=== PATIENT | female | born 1985 | race Caucasian/White ===

== ENCOUNTER 2022-08-18 10:59 | Outpatient (CLI) | payer OTHER, SELFPAY ==
[2022-08-18 21:48] LABS: Chloride* 105 mmol/L (96-114); Potassium* 4.5 mmol/L (3.6-5.1); Sodium* 142 mmol/L (135-149)
[2022-08-18 21:51] LABS: Blood Urea Nitrogen* 13 mg/dL (5-24); Calcium* 9.8 mg/dL (8.4-10.6); Carbon Dioxide* 26 mmol/L (20-32); Creatinine* 0.9 mg/dL (0.5-1.5); Estimated Glomerular Filt Rate 86 ml/min; Glucose* 102 mg/dL (60-115)
== END 2022-08-18 11:00 | disposition home or self-care (01) ==
PROVIDERS: PCP Obstetrics & Gynecology; Visit Provider Family Medicine
DX: Z01.818 Encounter for other preprocedural examination (principal)
CPT/HCPCS: 80048

== ENCOUNTER 2022-08-24 07:15 | Day surgery (SDC) | payer OTHER, SELFPAY ==
[2022-08-24] VITALS (18 sets, daily range): BP systolic 100–152; BP diastolic 57–98; PULSE 76–105; RESP 16–20; TEMP 36.4–37.4; O2SAT 95–100; BMI 40.0
[2022-08-24 07:54] LABS: Hemoglobin* 14.4 gm/dL (12.0-16.0)
[2022-08-24] MEDS: LACTATED RINGERS 1000 ML 1,000 ML 100 ML IV ×2 (08:30→10:58)
[2022-08-24] MEDS: ETHYL CHLORIDE 1 APPLICATION 1 APPLIC TOPICAL (08:31)
[2022-08-24] MEDS: SODIUM CHLORIDE 0.9 % (FLUSH) 10 ML SYRINGE IVF (08:31)
[2022-08-24 08:43] LABS: HCG Qualitative Serum* Negative (Negative)
[2022-08-24] MEDS: CEFAZOLIN 1 GM inj 3 GM IVP (09:15)
[2022-08-24] MEDS: KETOROLAC 30 MG/ML inj IVP ×3 (10:59→23:13)
--- NOTE | 2022-08-24 11:15 | PM.PROC ---
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 Patient has completed her family. Scheduled total laparoscopic hysterectomy, light salpingo oophorectomy and diagnostic cystoscopy to prevent ovarian cancer metastasis. Postoperative diagnosis: Same Procedure: Total laparoscopic hysterectomy, bilateral salpingectomy, diagnostic cystoscopy. Anesthesia: General endotracheal, local Surgeon: Jennifer Snow MD Pickers Material Handlers: Lakeisha Brito MD 2nd assist: YAKELIN Campoverde Estimated blood loss: 100 mL. IV Fluid: 1500 mL Urine output: 450 mL, clear urine at the end of the procedure Drains: Kirkland to gravity Specimen: Uterus, left ovary and fallopian tube to pathology. Findings: On exam under anesthesia: The uterus was anteverted, approximately 9-10 week size, mobile without nodularity or masses palpable. Adnexa without mass or fullness palpable. On laparoscopy: normal appearing uterus left fallopian tube and ovary. Appendix, right tube and ovary surgically absent. Liiver edge and gallbladder appeared normal. Filmy adhesions of cecum to the right pelvic sidewall and thin adhesions of sigmoid colon to left pelvic sidewall. Procedure: Jennifer was taken to the operating room where general anesthetic was found to be adequate. She was placed in the dorsal lithotomy position and an exam under anesthesia was performed with findings stated above. She was then prepped and draped in a normal sterile manner. A Kirkland catheter was placed. A bivalve speculum was placed in the vaginal canal. A single-toothed tenaculum was placed on the anterior lip of the cervix, in the uterus sounded to 9.5 cm. A extra large VCare uterine manipulator was then placed. The tenaculum and speculum were removed from the cervix. Attention was then turned to performing the laparoscopic portion of the procedure. All incisions were infiltrated with 0.50% Marcaine prior to incising the skin. A vertical, infraumbilical 1 cm incision was made. An 11 mm trocar was then placed under direct visualization. The abdomen was then insufflated with CO2 gas to a pressure of 15 mm of mercury. Two, pelvic ports were then placed approximately 3-4 finger breaths medial to the ischial crests. The trocar in the RLQ = 5mm, LLQ = 11mm. These were placed under direct visualization. Attention was then turned to performing the hysterectomy. Both ureters were visualized in the normal position bilaterally. The left fallopian tube was grasped and infundibulopelvic ligament was cauterized and ligated using the Olympus PowerSeal blunt tip dissecting forceps. Sequential pedicles were then formed using the power seal dissecting forceps and the tube and ovary were removed from the cornua and placed in posterior cul-de-sac. The left side of the hysterectomy was performed using the PowerSeal dissecting forceps. The 1st pedicles were starting with the broad ligament that was cauterized and and bisected. In sequence show pedicles were formed to divide the utero-ovarian ligament. Then sequential pedicles were made through the broad ligament. The posterior leaf of the broad ligament was then divided and sequential pedicles carried down to the level of the VCare cup. The anterior leaf of the broad ligament was then divided down to the level of the anterior aspect of the VCare cup and a bladder flap created. The uterine vessels were then skeletonized. The uterine vessels were then cauterized and divided. Then excess tissue was cleared over the top of the VCare cup using the dissecting forceps. The right side of the hysterectomy were then performed in a similar manner. The Ligasure Valleylab pen with the spatula attachment was then used to perform the colpotomy incising around the VCare cup. The uterus, left tube and ovary were removed from the pelvis via the vaginal canal. The fundus placed in the vaginal canal to maintain insufflation. The vaginal cuff was then reapproximated using 2-0 V lock suture in a running manner. All the pedicles and vaginal cuff were then closely visualized and hemostasis obtained with bipolar cautery using the PowerSeal dissecting forceps or the Valleylab pen with the spatula. The the uterus was removed from the vaginal canal and sent to pathology. The Kirkland catheter was briefly removed. A diagnostic cystoscopy was performed using normal saline as the insufflation medium. The dome of the bladder was noted to be without injury and no evidence of any sutures from the vaginal cuff causing injury. Normal urine flow was noted through both ureteral orifices. Fluorescein IV was used to visualize the urine more easily. The Kirkland catheter was then replaced. Attention was then returned to the abdomen where hemostasis was verified. Arthur was applied to the vaginal cuff. The CO2 pressure decreased to 8mmHG and hemostasis verified. The fascia in the LLQ incision was approximated with 0-Vicryl suture using the Roslaia fascial closure device. This was closed under direct visualization with the laparoscope. The fascia in the umbilical incision was reapproximated using 0 Vicryl on a UR 6 needle. All trocars were removed under direct visualization. CO2 gas was allowed to escape the infraumbilical port prior to its removal. All skin incisions were re-approximated using 4-0 Monocryl in a running subcuticular manner, Exofin skin adhesive gel and adhesive bandages placed. The patient tolerated this procedure well. Sponge, lap and instrument counts were correct x2 at the end of the procedure and the patient was taken to the recovery area in stable condition. The patient received 3gm IV ancef prior to the start of the procedure. Surgeon: Jennifer Snow MD
--- NOTE | 2022-08-24 11:21 | P.GYNPRC_ITS ---
Procedure Note Date Seen: 08/24/22 Procedure Details: PREOPERATIVE DIAGNOSIS: 37-year-old 5 para 2? 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 POSTOPERATIVE DIAGNOSIS: 37-year-old 5 para 2? 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 PROCEDURE: Total laparoscopic hysterectomy, L ysis of adhesions, Left salpingo- oophorectomy and diagnostic cystoscopy. SURGEON: Gwendolyn. BLACK OXIDE COATING EQUIPMENT TENDER: Daryl. ANESTHESIA: General endotracheal COMPLICATIONS: None ESTIMATED BLOOD LOSS: See operative report by Dr. Snow. FINDINGS: See operative report by Dr. Snow. PROCEDURE NOTE: Please see the operative report by Dr. Snow for full details of the procedure. I was asked to assist. I was scrubbed in for the entire procedure until closure of the abdominal incisions. I provided assistance with laparoscopic port placement, lysis of adhesions, visualization and retraction, and with the hysterectomy and LSO from the right side, as well as with hemostasis and closure of the vaginal cuff.
--- NOTE | 2022-08-24 11:36 | W.ANESCHARGE ---
Anesthesia Charges Start Date/Time Anesthesia Start Date: 08/24/22 Anesthesia Start Time: 08:52 Stop Date/Time Anesthesia Stop Date: 08/24/22 Anesthesia Stop Time: 11:33 Summary Emergency: No
[2022-08-24] MEDS: LACTATED RINGERS 1000 ML 1,000 ML 35 ML IV (11:59)
--- NOTE | 2022-08-24 14:26 | P.NB_ITS ---
Nerve Block Nerve Block Time Seen by Provider: 09:03 Date Seen: 08/24/22 Type of block requested by surgeon for post-operative analgesia: TAP Side: bilateral Time out performed: Yes Verification of patient name: Yes Verification of date of : Yes Site marking: site marked Name of person performing procedure: Curt Continuous monitoring Was continuous monitoring of O2 sat, B/P, equipment monitor phototypesetting, recorded every 15 minutes?: Yes Procedure Checklist: sterile prep, needles and gloves Ultrasound guided. Images saved: Yes Medications given in 5ml increments after negative aspiration: Marcaine %: 0.25 mL: 30 Needle gauge: 20 and Exparel mL: 10 Patient tolerated procedure well: Yes Additional comments: Needle noted adjacent to nerve Block Charges Block Charge (with Pro Fee): TAP Bilateral Use of Ultrasound Machine for Block: Yes- US Guidance/pain block
--- NOTE | 2022-08-24 14:27 | W.ANESCHARGE ---
Anesthesia Charges Start Date/Time Anesthesia Start Date: 08/24/22 Anesthesia Start Time: 08:52 Stop Date/Time Anesthesia Stop Date: 08/24/22 Anesthesia Stop Time: 11:33 Summary Emergency: No
[2022-08-24] MEDS: LACTATED RINGERS 1000 ML 1,000 ML 125 ML IV (15:37)
[2022-08-24] MEDS: ONDANSETRON 2 MG/ML inj 4 MG IVP (18:37)
[2022-08-24] MEDS: ENOXAPARIN 40 MG/0.4 ML INJ SUBCUT (21:02)
--- NOTE | 2022-08-24 23:07 | PC.NURSE ---
Pt states that she feels slightly bloated, but not to uncomfortable. Bowel sounds are active and flactus present. Pt has sever edema in her left lower extremity, which she states is normal for her. Pt appears less anxious than at the beginning of the shift and is encouraged to get some sleep.
[2022-08-25] MEDS: ACETAMINOPHEN 500 MG TABLET 1000 MG PO ×2 (02:10→10:21)
[2022-08-25 05:20] VITALS: BP 121/73; PULSE 85; RESP 14; TEMP 36.8; O2SAT 95
[2022-08-25] MEDS: IBUPROFEN 600 MG TABLET PO ×2 (05:40→09:04)
[2022-08-25 07:17] LABS: Basophils Absolute Auto 0.02 K/uL (0.00-0.30); Basophils Percent Auto 0.3 % (0.0-3.0); Eosinophils Absolute Auto 0.02 K/uL (0.00-0.50); Eosinophils Percent Auto 0.3 % (0.0-7.0); Hematocrit 36.7 % (33.0-51.0); Hemoglobin* 12.3 gm/dL (12.0-16.0); Lymphocytes Absolute Auto 2.43 K/uL (0.90-2.90); Lymphocytes Percent Auto 33.6 % (20-44); Mean Corpuscular HGB Conc 34 gm/dL (32-36); Mean Corpuscular Hemoglobin 29 pg (26-34); Mean Corpuscular Volume 86 fL (80-100); Monocytes Percent Auto 9.1 % (0.0-11.0); Neutrophils Absolute Auto 4.11 K/uL (1.7-7.0); Neutrophils Percent Auto 56.7 % (42.0-72.0); Platelet Count* 244 K/uL (140-440); RDW Coefficient of Variation % 12.3 % (11.5-15.5); Red Blood Count 4.27 m/uL (4.00-5.20); White Blood Count* 7.24 K/uL (4.50-11.00)
[2022-08-25 07:21] LABS: Slide Review Reflex No
[2022-08-25] MEDS: CITALOPRAM HYDROBROMIDE 20 MG TABLET PO (09:04)
[2022-08-25] MEDS: DOCUSATE SODIUM 100 MG CAPSULE PO (09:04)
[2022-08-25 09:08] VITALS: BP 128/75; PULSE 82; RESP 16; TEMP 37.4; O2SAT 97
--- NOTE | 2022-08-25 09:32 | PM.GYNDS1 ---
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 Indication for surgery: History of ovarian carcinoma, completed childbearing. Intraoperative findings were notable for no gross abnormalities. She had an uncomplicated surgery. Postoperative course has been uneventful. Vitals have been stable. She has remained afebrile. Today, on postoperative day 1, she reports the pain is well controlled. She has been able to ambulate Without difficulty. She is tolerating regular diet. She is passing flatus. Kirkland catheter has been removed, and she is voiding without difficulty. Postop hemoglobin 12.3. Time Spent with Patient Time attestation: Total time spent providing and/or coordinating discharge services: Time spent: Less than 30 minutes SEALING MACHINE OPERATOR - Exam Physical Exam: Vital signs: Temp Pulse Resp BP Pulse Ox O2 Del Method 99.4 F 82 16 128/75 97 08/25/22 09:08 08/25/22 09:08 08/25/22 09:08 08/25/22 09:08 08/25/22 09:08 08/25/22 09:08 Narrative: VITAL SIGNS: As noted above. GENERAL APPEARANCE: Alert, cooperative female in no acute distress. MOOD & AFFECT: Normal. ABDOMEN: Soft, non-distended only mildly tender to palpation. Incisions look to be healing well, no surrounding erythema, induration or abnormal discharge. : Minimal spotting. EXTREMITIES: Nonedematous. Well perfused. Nontender. SEALING MACHINE OPERATOR - DS: Data Data Completed and Pending Labs on day of discharge: Labs from last 24 hours 08/25/22 06:50 WBC 7.24 RBC 4.27 Hgb 12.3 Hct 36.7 MCV 86 MCH 29 MCHC 34 RDW Coeff of Brain 12.3 Plt Count 244 Neut % (Auto) 56.7 Lymph % (Auto) 33.6 [place] % (Auto) 9.1 Eos % (Auto) 0.3 Baso % (Auto) 0.3 Neut # (Auto) 4.11 Lymph # (Auto) 2.43 [place] # (Auto) 0.70 Eos # (Auto) 0.02 Baso # (Auto) 0.02 Procedures Procedures: Procedures Operation Date: 08/24/22 08:30 Actual Procedure Side Surgeon p Total Lap Hysterectomy, Left Salpingo-Oophorectomy, Dx Cystoscopy Jennifer Snow MD Discharge Plan Discharge Disposition: Home, Self-Care Discharging Surgeon: Lin Soriano Follow-Up Appointment: With Dr. Snow in 2+ and 5 week for postop exam x2. Prescriptions: New docusate sodium 100 mg Capsule 100 mg PO BID PRN (Reason: Constipation) Qty: 100 0RF ibuprofen 600 mg Tablet 600 mg PO Q6H Qty: 30 0RF oxycodone 5 mg Tablet 5 - 10 mg PO Q4H PRN (Reason: Moderate Pain) Qty: 21 0RF Continued citalopram 20 mg tablet 20 mg PO QDAY Qty: 90 3RF Discontinued drospirenone-ethinyl estradiol 3-0.03 mg tablet 1 tab PO QDAY Qty: 84 1RF Activity Level: Activity as Tolerated and No Weight Bearing Discharge Diet: Regular Patient Instructions: Surgical Site Infections (DC) Additional Instructions: Discharge instructions were reviewed with the patient including signs and symptoms of infection and home going medications ACTIVITY RESTRICTIONS: Lifting Restrictions: 20 pounds for 4 weeks No not submerge incisions under water: 2 weeks? Nothing vaginally for 6 weeks: no tampons or intercourse. Do not drive while taking narcotic pain medication(s): 1-2 weeks No high impact, high intensity or core exercises: 4 weeks Off Work or School for 4 weeks Walking and walking up/down stairs: no restriction. Showering: no restriction. Symptoms to report to doctor: Pain not relieved by prescribed medication Fever above 100.4 degrees Fahrenheit A foul vaginal odor Any drainage, redness, or tenderness in your IV or incsion sites. Decrease in urination or painful, frequent urinating Chest pain Shortness of breath Tenderness or pain with redness and/swelling in the calf(s) of your leg FOLLOW-UP APPOINTMENTS: Postop check appointments in 2 and 5weeks with Jennifer Snow MD. Forms: Work/School Release Follow-up: Jennifer Snow MD [Staff Physician] - Lin Soriano MD [Primary Care Provider] - Discharge Orders: Discharge Order (Routine); Ordered 08/25/22 Ordered By: Lin Soriano Consulting provider completed their portion of the discharge: No
== END 2022-08-25 11:00 | disposition home or self-care (01) ==
LOC: OR 07:16 → OB 07:20
PROVIDERS: PCP Obstetrics & Gynecology; Visit Provider Obstetrics & Gynecology
PROC: 0UT94ZZ Resection of Uterus, Percutaneous Endoscopic Approach (ICD-10-PCS; CPT 58571; principal; 2022-08-24 08:30)
DX: C56.1 Malignant neoplasm of right ovary (principal); N83.02 Follicular cyst of left ovary; Z90.721 Acquired absence of ovaries, unilateral; E66.9 Obesity, unspecified; Z68.41 Body mass index [BMI] 40.0-44.9, adult; R68.82 Decreased libido; F41.1 Generalized anxiety disorder
CPT/HCPCS: 58571; 00840; 36415; 64488; 76942; 81025; 84703; 85018; 85025; 86850; 86900; 86901; 88307; A9270; C9290; J0690; J1100; J1170; J1650; J1885; J2250; J2405; J2704; J3010; J3490; J7120

== ENCOUNTER 2022-09-08 09:30 | Emergency (ER) | payer OTHER, SELFPAY ==
[2022-09-08] VITALS (7 sets, daily range): BP systolic 122–137; BP diastolic 74–98; PULSE 77–81; RESP 16; TEMP 36.3; O2SAT 97–99
--- NOTE | 2022-09-08 09:58 | ED_ITS ---
HPI - General Adult General Time Seen by Provider: 09:58 Date Seen: 09/08/22 Chief complaint: Chest Pain Stated complaint: Chest pain Time Seen by Provider: 09/08/22 09:52 Source: patient Mode of arrival: ambulatory Limitations: no limitations History of Present Illness HPI narrative: Jennifer is a 37-year-old female past medical history includes malignant neoplasm of the right ovary status post laparoscopic hysterectomy 2 weeks ago, anxiety, presents emerged department via private car with chest pain. Patient states that since last Tuesday she developed some left upper chest pain, it would radiate to her neck and down her left arm, Tuesday and yesterday she just had pain in the upper chest area it is been constant worse with inspiration, sharp in nature, some radiation to the back. She denies any heavy lifting, shortness of breath, diaphoresis, lightheadedness or dizziness. No history of any PEs or DVTs in the past, no cardiac history, no family history of cardiac disease. She has not had any cough or fevers, no chills. She denies any abdominal pain, vaginal bleeding or urinary complaints. Pain is a 4/10. Related Data Previous Rx's Medication Instructions Recorded citalopram 20 mg tablet 20 mg PO QDAY #90 tabs 05/10/22 ibuprofen 600 mg tablet 600 mg PO Q6H #30 tabs 08/24/22 estradiol 1 mg tablet 1 mg PO QDAY #90 tabs 09/08/22 lorazepam 1 mg tablet 1 mg PO QHS PRN anxiety #30 tabs 09/08/22 Allergies Allergy/AdvReac Type Severity Reaction Status Date / Time No Known Drug Allergies Allergy Unverified 09/08/22 08:26 Review of Systems Status of ROS: Reports: 10 or more systems reviewed and unremarkable except as noted in History and below [facility] Medical History BMI 40.0-44.9, adult Endometriosis determined by laparoscopy (2010) Generalized anxiety disorder History of recurrent miscarriages History of vaginal delivery Malignant neoplasm of right ovary (~2010) Menopausal vasomotor syndrome Oral contraceptive use Right-sided low back pain without sciatica Surgical History History of D&C (04/13/17) History of dilation and curettage (07/27/14) Status post laparoscopic hysterectomy (08/24/22) Status post robot-assisted surgical procedure (2010) Family History Father Skin cancer Mother Skin cancer Father Lymphoma Social History Narrative: Relationship status: Spouse: Andrea Education: School graduate 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 Prior to : 0-1 of servings per week. Illicit or Recreational drug use: No. Concerns for safety at home/work: No. Would like to discuss issues of abuse: No. Dietary restrictions: No Exercise: No Smoking Status: Never smoker Do you use any of these nicotine containing products: None Second hand tobacco smoke exposure: No How often do you have a drink containing alcohol: 4 or more times a week Alcohol type: wine How many standard drinks containing alcohol do you have on a typical day: 1 or 2 How often do you have six or more drinks on one occasion: Never AUDIT-C Alcohol total score: 4 Non-prescribed substance use: denies use Caffeine: Yes Little interest or pleasure in doing things: not at all Feeling down, depressed, or hopeless: not at all service: No Exam Narrative: Exam Narrative: General: No obvious distress sitting comfortably HEENT: Pupils equal round reactive to light Neck: Supple, full range of motion : Lungs: Clear to auscultation bilaterally Heart: Normal sinus rhythm S1-S2 Abdomen: Soft nontender, bowel sounds present Muscle skeletal: Some mild tenderness to palpation the left upper chest wall area Neuro: Alert awake and oriented x3 Const: Vital Signs, click to edit/add: Vital Signs - 24 hr 09/08/22 11:31 09/08/22 12:01 09/08/22 12:20 Pulse Rate 77 Blood Pressure 122/84 122/74 Pulse Oximetry 98 09/08/22 12:30 09/08/22 12:31 Pulse Rate 81 77 Blood Pressure 130/98 H Pulse Oximetry 98 97 Course Course Hospital Course: 10:00 AM: AIDET performed, vitals are stable at this time, workup will include IV peripheral, 30 mg IV Toradol, will obtain EKG, point of care troponin, D-dime r, CMP and lipase, less likely ACS, PE or dissection, seems more reproducible, will await for lab results to see which imaging to be obtained. Differential diagnosis include but not limited to life-threatening of CAD, mi, PE, pneumothorax, pneumonia and aortic dissection. Other differential diagnosis include but are not limited to pericarditis, myocarditis chest wall pain GERD esophageal rupture as well as other etiologies. 10:15nAM: EKG showed a normal sinus rhythm, bpm of 82, no ectopy or acute ST changes compared to previous. Reevaluation(s) Reevaluation #1: Patient updated on her lab and imaging results, D-dimer was within normal limits did obtain a chest x-ray which showed no acute cardiopulmonary process, EKG showed no acute changes, troponin negative, labs otherwise unremarkable, she is feeling better after above care given, plan would be to discharge to follow-up with primary care provider over the next 7-10 days, return precautions given. Time: 12:00 Vital Signs Vital signs: Initial Vital Signs Temperature 97.4 F L 09/08/22 09:33 Temperature Source Temporal Artery Scan 09/08/22 09:33 Pulse Rate 79 09/08/22 09:33 Pulse Rhythm 09/08/22 09:33 Respiratory Rate 16 09/08/22 09:33 Blood Pressure 137/91 H 09/08/22 09:33 Blood Pressure Mean 106 09/08/22 09:33 Blood Pressure Position Sitting 09/08/22 09:33 Pulse Oximetry 99 09/08/22 09:33 Oxygen Delivery Method 09/08/22 09:33 Vital Signs Temperature 97.4 F L 09/08/22 09:33 Pulse Rate 79 09/08/22 09:33 Respiratory Rate 16 09/08/22 09:33 Blood Pressure 137/91 H 09/08/22 09:33 Pulse Oximetry 99 09/08/22 09:33 Oxygen Delivery Method 09/08/22 09:33 Temperature 97.4 F L 09/08/22 09:33 Pulse Rate 77 09/08/22 12:31 Respiratory Rate 16 09/08/22 09:33 Blood Pressure 130/98 H 09/08/22 12:31 Pulse Oximetry 97 09/08/22 12:31 Oxygen Delivery Method 09/08/22 09:33 Medical Decision Making Lab Data Labs: Lab Results 09/08/22 09/08/22 09/08/22 Range/Units 09:43 10:05 10:05 WBC 7.69 (4.50-11.00) K/uL RBC 4.82 (4.00-5.20) m/uL Hgb 13.8 (12.0-16.0) gm/dL Hct 41.4 (33.0-51.0) % MCV 86 (80-100) fL MCH 29 (26-34) pg MCHC 33 (32-36) gm/dL RDW Coeff of Brain 12.2 (11.5-15.5) % Plt Count 316 (140-440) K/uL Neut % (Auto) 61.5 (42.0-72.0) % Lymph % (Auto) 27.7 (20-44) % [place] % (Auto) 7.7 (0.0-11.0) % Eos % (Auto) 2.3 (0.0-7.0) % Baso % (Auto) 0.5 (0.0-3.0) % Neut # (Auto) 4.73 (1.7-7.0) K/uL Lymph # (Auto) 2.13 (0.90-2.90) K/uL [place] # (Auto) 0.60 (0.00-0.90) K/UL Eos # (Auto) 0.18 (0.00-0.50) K/uL Baso # (Auto) 0.04 (0.00-0.30) K/uL D-Dimer Quant (PE/DVT) 0.50 (0.00-0.50) ug/ml Sodium (135-149) mmol/L Potassium (3.6-5.1) mmol/L Chloride (96-114) mmol/L Carbon Dioxide (20-32) mmol/L BUN (5-24) mg/dL Creatinine (0.5-1.5) mg/dL Estimated GFR ml/min Glucose (60-115) mg/dL Calcium (8.4-10.6) mg/dL Total Bilirubin (0.1-1.5) mg/dL AST (12-35) U/L ALT (4-35) U/L Alkaline Phosphatase (40-150) U/L Total Protein (6.0-8.3) g/dL Albumin (3.3-5.0) g/dL Lipase (23-300) U/L POC Troponin I 0.00 L (0.01-0.04) ng/ml 09/08/22 Range/Units 10:05 WBC (4.50-11.00) K/uL RBC (4.00-5.20) m/uL Hgb (12.0-16.0) gm/dL Hct (33.0-51.0) % MCV (80-100) fL MCH (26-34) pg MCHC (32-36) gm/dL RDW Coeff of Brain (11.5-15.5) % Plt Count (140-440) K/uL Neut % (Auto) (42.0-72.0) % Lymph % (Auto) (20-44) % [place] % (Auto) (0.0-11.0) % Eos % (Auto) (0.0-7.0) % Baso % (Auto) (0.0-3.0) % Neut # (Auto) (1.7-7.0) K/uL Lymph # (Auto) (0.90-2.90) K/uL [place] # (Auto) (0.00-0.90) K/UL Eos # (Auto) (0.00-0.50) K/uL Baso # (Auto) (0.00-0.30) K/uL D-Dimer Quant (PE/DVT) (0.00-0.50) ug/ml Sodium 141 (135-149) mmol/L Potassium 4.5 (3.6-5.1) mmol/L Chloride 105 (96-114) mmol/L Carbon Dioxide 29 (20-32) mmol/L BUN 14 (5-24) mg/dL Creatinine 0.8 (0.5-1.5) mg/dL Estimated GFR 98 ml/min Glucose 104 (60-115) mg/dL Calcium 9.7 (8.4-10.6) mg/dL Total Bilirubin 0.4 (0.1-1.5) mg/dL AST 26 (12-35) U/L ALT 30 (4-35) U/L Alkaline Phosphatase 116 (40-150) U/L Total Protein 7.4 (6.0-8.3) g/dL Albumin 4.4 (3.3-5.0) g/dL Lipase 40 (23-300) U/L POC Troponin I (0.01-0.04) ng/ml Discharge Plan Discharge Clinical Impression: Atypical chest pain, History of hysterectomy Patient Disposition: Home, Self-Care Condition: Improved Instructions: Chest Pain (ED) Additional Instructions: To follow-up with primary care provider over the next 5-7 days, to follow-up with IMAGING SYSTEM ADMINISTRATOR as scheduled for postoperative appointment. To return if any w orsening symptoms. Activity Level: No Restrictions Prescriptions: No Action citalopram 20 mg tablet 20 mg PO QDAY Qty: 90 3RF estradiol 1 mg tablet 1 mg PO QDAY Qty: 90 3RF lorazepam 1 mg tablet 1 mg PO QHS PRN (Reason: anxiety) Qty: 30 0RF Rx Instructions: Take 1/2 tab by mouth at bedtime as needed ibuprofen 600 mg Tablet 600 mg PO Q6H Qty: 30 0RF Follow Up/Referrals: Lin Soriano MD [Primary Care Provider] - Stand Alone Forms: [employer] Info Instructions
[2022-09-08] MEDS: KETOROLAC 30 MG/ML inj IVP (10:20)
[2022-09-08 10:24] LABS: Basophils Absolute Auto 0.04 K/uL (0.00-0.30); Basophils Percent Auto 0.5 % (0.0-3.0); Eosinophils Absolute Auto 0.18 K/uL (0.00-0.50); Eosinophils Percent Auto 2.3 % (0.0-7.0); Hematocrit 41.4 % (33.0-51.0); Hemoglobin* 13.8 gm/dL (12.0-16.0); Immature Granulocytes Abs Auto 0.02 K/uL (0.00-0.30); Immature Granulocytes Pct Auto 0.3 %; Lymphocytes Absolute Auto 2.13 K/uL (0.90-2.90); Lymphocytes Percent Auto 27.7 % (20-44); Mean Corpuscular HGB Conc 33 gm/dL (32-36); Mean Corpuscular Hemoglobin 29 pg (26-34); Mean Corpuscular Volume 86 fL (80-100); Monocytes Percent Auto 7.7 % (0.0-11.0); Neutrophils Absolute Auto 4.73 K/uL (1.7-7.0); Neutrophils Percent Auto 61.5 % (42.0-72.0); Platelet Count* 316 K/uL (140-440); RDW Coefficient of Variation % 12.2 % (11.5-15.5); Red Blood Count 4.82 m/uL (4.00-5.20); White Blood Count* 7.69 K/uL (4.50-11.00)
[2022-09-08 10:28] LABS: Slide Review Reflex No
[2022-09-08 10:36] LABS: Albumin* 4.4 g/dL (3.3-5.0)
[2022-09-08 10:37] LABS: Chloride* 105 mmol/L (96-114); Potassium* 4.5 mmol/L (3.6-5.1); Sodium* 141 mmol/L (135-149)
[2022-09-08 10:39] LABS: Alkaline Phosphatase* 116 U/L (40-150); Aspartate Amino Transferase* 26 U/L (12-35); Bilirubin Total* 0.4 mg/dL (0.1-1.5); Blood Urea Nitrogen* 14 mg/dL (5-24); Carbon Dioxide* 29 mmol/L (20-32); Creatinine* 0.8 mg/dL (0.5-1.5); Estimated Glomerular Filt Rate 98 ml/min; Total Protein* 7.4 g/dL (6.0-8.3)
[2022-09-08 10:40] LABS: Alanine Aminotransferase* 30 U/L (4-35); Calcium* 9.7 mg/dL (8.4-10.6); Glucose* 104 mg/dL (60-115); Lipase* 40 U/L (23-300)
--- NOTE | 2022-09-08 11:34 | CRLHL7_ITS ---
For Patients: As a result of the Century Cures Act, medical imaging exams and procedure reports are released immediately into your electronic medical record. You may view this report before your referring provider. If you have questions, please contact your health care provider. INDICATION: UPPER CHEST PAIN. LEFT SIDED TECHNIQUE: Chest 2 views. COMPARISON: None. FINDINGS: Cardiovascular and mediastinum: Heart size and vasculature are normal in caliber and appearance. Mediastinum is within normal limits. Lungs and pleural spaces: Lungs are clear. No sign of infiltrate or mass. No sign of pleural effusion. No pneumothorax. Bones and soft tissues: No significant findings. IMPRESSION: Unremarkable chest. Dictated by: Andrade Gregory MD @ 09/08/2022 12:24:41 (Electronically Signed)
--- NOTE | 2022-09-08 11:43 | ED_ITS ---
HPI - General Adult General Chief complaint: Chest Pain Stated complaint: Chest pain Time Seen by Provider: 09/08/22 09:52 Source: patient Mode of arrival: ambulatory Limitations: no limitations Related Data Previous Rx's Medication Instructions Recorded citalopram 20 mg tablet 20 mg PO QDAY #90 tabs 05/10/22 ibuprofen 600 mg tablet 600 mg PO Q6H #30 tabs 08/24/22 estradiol 1 mg tablet 1 mg PO QDAY #90 tabs 09/08/22 lorazepam 1 mg tablet 1 mg PO QHS PRN anxiety #30 tabs 09/08/22 Allergies Allergy/AdvReac Type Severity Reaction Status Date / Time No Known Drug Allergies Allergy Unverified 09/08/22 08:26 [facility] Medical History BMI 40.0-44.9, adult Endometriosis determined by laparoscopy (2010) Generalized anxiety disorder History of recurrent miscarriages History of vaginal delivery 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 Prior to : 0-1 of servings per week. Illicit or Recreational drug use: No. Concerns for safety at home/work: No. Would like to discuss issues of abuse: No. Dietary restrictions: No Exercise: No Smoking Status: Never smoker Do you use any of these nicotine containing products: None Second hand tobacco smoke exposure: No How often do you have a drink containing alcohol: 4 or more times a week Alcohol type: wine How many standard drinks containing alcohol do you have on a typical day: 1 or 2 How often do you have six or more drinks on one occasion: Never AUDIT-C Alcohol total score: 4 Non-prescribed substance use: denies use Caffeine: Yes Little interest or pleasure in doing things: not at all Feeling down, depressed, or hopeless: not at all service: No Exam Const: Vital Signs, click to edit/add: Vital Signs - 24 hr 09/08/22 09:33 09/08/22 10:32 09/08/22 11:31 Temperature 97.4 F L Pulse Rate [Pulse Oximeter] 79 Respiratory Rate 16 Blood Pressure 134/82 122/84 Blood Pressure [Ri ght Upper Arm] 137/91 H Pulse Oximetry 99 Oxygen Delivery Me thod Room Air Course Course Hospital Course: 10:00 AM: AIDET performed, vitals are stable at this time, workup will include IV peripheral, 30 mg IV Toradol, will obtain EKG, point of care troponin, D- dimer, CMP and lipase, less likely ACS, PE or dissection, seems more reproducible, will await for lab results to see which imaging to be obtained. Differential diagnosis include but not limited to life-threatening of CAD, mi, PE, pneumothorax, pneumonia and aortic dissection. Other differential diagnosis include but are not limited to pericarditis, myocarditis chest wall pain GERD esophageal rupture as well as other etiologies. 10:15nAM: EKG showed a normal sinus rhythm, bpm of 82, no ectopy or acute ST changes compared to previous. Reevaluation(s) Reevaluation #1: Patient was updated on her EKG and lab results, troponin 0.00, D-dimer within normal limits, will obtain a 2 view chest XR, patient still has mild discomfort, patient did drive to the emergency department. Time: 11:43 Reevaluation #2: XR chest PA and lateral showed no acute cardiopulmonary process, she is feeling better after above care given, plan would be to discharge he will follow up with her primary care provider over the next 5-7 days, she also has a follow-up with her TWISTING OPERATOR for postoperative recheck, reasons return were given. Time: 12:34 Vital Signs Vital signs: Initial Vital Signs Temperature 97.4 F L 09/08/22 09:33 Temperature Source Temporal Artery Scan 09/08/22 09:33 Pulse Rate 79 09/08/22 09:33 Pulse Rhythm 09/08/22 09:33 Respiratory Rate 16 09/08/22 09:33 Blood Pressure 137/91 H 09/08/22 09:33 Blood Pressure Mean 106 09/08/22 09:33 Blood Pressure Position Sitting 09/08/22 09:33 Pulse Oximetry 99 09/08/22 09:33 Oxygen Delivery Method 09/08/22 09:33 Vital Signs Temperature 97.4 F L 09/08/22 09:33 Pulse Rate 79 09/08/22 09:33 Respiratory Rate 16 09/08/22 09:33 Blood Pressure 137/91 H 09/08/22 09:33 Pulse Oximetry 99 09/08/22 09:33 Oxygen Delivery Method 09/08/22 09:33 Temperature 97.4 F L 09/08/22 09:33 Pulse Rate 79 09/08/22 09:33 Respiratory Rate 16 09/08/22 09:33 Blood Pressure 122/84 09/08/22 11:31 Pulse Oximetry 99 09/08/22 09:33 Oxygen Delivery Method 09/08/22 09:33 Medical Decision Making Lab Data Labs: Lab Results 09/08/22 09/08/22 09/08/22 Range/Units 09:43 10:05 10:05 WBC 7.69 (4.50-11.00) K/uL RBC 4.82 (4.00-5.20) m/uL Hgb 13.8 (12.0-16.0) gm/dL Hct 41.4 (33.0-51.0) % MCV 86 (80-100) fL MCH 29 (26-34) pg MCHC 33 (32-36) gm/dL RDW Coeff of Brain 12.2 (11.5-15.5) % Plt Count 316 (140-440) K/uL Neut % (Auto) 61.5 (42.0-72.0) % Lymph % (Auto) 27.7 (20-44) % [place] % (Auto) 7.7 (0.0-11.0) % Eos % (Auto) 2.3 (0.0-7.0) % Baso % (Auto) 0.5 (0.0-3.0) % Neut # (Auto) 4.73 (1.7-7.0) K/uL Lymph # (Auto) 2.13 (0.90-2.90) K/uL [place] # (Auto) 0.60 (0.00-0.90) K/UL Eos # (Auto) 0.18 (0.00-0.50) K/uL Baso # (Auto) 0.04 (0.00-0.30) K/uL D-Dimer Quant (PE/DVT) 0.50 (0.00-0.50) ug/ml Sodium (135-149) mmol/L Potassium (3.6-5.1) mmol/L Chloride (96-114) mmol/L Carbon Dioxide (20-32) mmol/L BUN (5-24) mg/dL Creatinine (0.5-1.5) mg/dL Estimated GFR ml/min Glucose (60-115) mg/dL Calcium (8.4-10.6) mg/dL Total Bilirubin (0.1-1.5) mg/dL AST (12-35) U/L ALT (4-35) U/L Alkaline Phosphatase (40-150) U/L Total Protein (6.0-8.3) g/dL Albumin (3.3-5.0) g/dL Lipase (23-300) U/L POC Troponin I 0.00 L (0.01-0.04) ng/ml 09/08/22 Range/Units 10:05 WBC (4.50-11.00) K/uL RBC (4.00-5.20) m/uL Hgb (12.0-16.0) gm/dL Hct (33.0-51.0) % MCV (80-100) fL MCH (26-34) pg MCHC (32-36) gm/dL RDW Coeff of Brain (11.5-15.5) % Plt Count (140-440) K/uL Neut % (Auto) (42.0-72.0) % Lymph % (Auto) (20-44) % [place] % (Auto) (0.0-11.0) % Eos % (Auto) (0.0-7.0) % Baso % (Auto) (0.0-3.0) % Neut # (Auto) (1.7-7.0) K/uL Lymph # (Auto) (0.90-2.90) K/uL [place] # (Auto) (0.00-0.90) K/UL Eos # (Auto) (0.00-0.50) K/uL Baso # (Auto) (0.00-0.30) K/uL D-Dimer Quant (PE/DVT) (0.00-0.50) ug/ml Sodium 141 (135-149) mmol/L Potassium 4.5 (3.6-5.1) mmol/L Chloride 105 (96-114) mmol/L Carbon Dioxide 29 (20-32) mmol/L BUN 14 (5-24) mg/dL Creatinine 0.8 (0.5-1.5) mg/dL Estimated GFR 98 ml/min Glucose 104 (60-115) mg/dL Calcium 9.7 (8.4-10.6) mg/dL Total Bilirubin 0.4 (0.1-1.5) mg/dL AST 26 (12-35) U/L ALT 30 (4-35) U/L Alkaline Phosphatase 116 (40-150) U/L Total Protein 7.4 (6.0-8.3) g/dL Albumin 4.4 (3.3-5.0) g/dL Lipase 40 (23-300) U/L POC Troponin I (0.01-0.04) ng/ml Discharge Plan Discharge Clinical Impression: Atypical chest pain, History of hysterectomy Patient Disposition: Home, Self-Care Condition: Improved Instructions: Chest Pain (ED) Additional Instructions: To follow-up with primary care provider over the next 5-7 days, to follow-up with TWISTING OPERATOR as scheduled for postoperative appointment. To return if any worsening symptoms. Activity Level: No Restrictions Prescriptions: No Action citalopram 20 mg tablet 20 mg PO QDAY Qty: 90 3RF estradiol 1 mg tablet 1 mg PO QDAY Qty: 90 3RF lorazepam 1 mg tablet 1 mg PO QHS PRN (Reason: anxiety) Qty: 30 0RF Rx Instructions: Take 1/2 tab by mouth at bedtime as needed ibuprofen 600 mg Tablet 600 mg PO Q6H Qty: 30 0RF Follow Up/Referrals: Lin Soriano MD [Primary Care Provider] - Stand Alone Forms: MyHealth Info Instructions
== END 2022-09-08 12:51 | disposition home or self-care (01) ==
PROVIDERS: Emergency Provider Student in an Organized Health Care Education/Training Program; PCP Obstetrics & Gynecology
DX: R07.89 Other chest pain (principal)
CPT/HCPCS: 36415; 71046; 80053; 83690; 84484; 85025; 85379; 96374; 99283; 99284; J1885

== ENCOUNTER 2023-09-01 10:33 | Outpatient (CLI) | payer OTHER, SELFPAY ==
--- NOTE | 2023-09-01 10:45 | CRLHL7_ITS ---
For Patients: As a result of the Century Cures Act, medical imaging exams and procedure reports are released immediately into your electronic medical record. You may view this report before your referring provider. If you have questions, please contact your health care provider. DIGITAL DIAGNOSTIC BILATERAL MAMMOGRAM USING TOMOSYNTHESIS AND COMPUTER-AIDED DETECTION RIGHT BREAST ULTRASOUND CLINICAL HISTORY: RIGHT breast lump. COMPARISON: None. TECHNIQUE: Digital BILATERAL mammogram in four projections. Tomosynthesis and CAD utilized. Real-time ultrasound imaging of RIGHT breast with imaging documentation. BREAST COMPOSITION: There are areas of scattered fibroglandular density. FINDINGS: Mammogram images demonstrating nodular density inferior RIGHT breast without architectural distortion. Unremarkable LEFT breast mammogram images. No suspicious calcifications. No adenopathy. Targeted RIGHT breast ultrasound performed. At 4 o`clock 14 cm from the nipple there is a hypoechoic collection of fluid located just beneath the skin. This measures 11 x 8 x 10 millimeters with a second tract extending to the skin surface. No internal vascularity. IMPRESSION: Benign sebaceous cyst RIGHT breast 4 o`clock 14 cm from the nipple measuring 1.1 cm. No evidence of malignancy. RECOMMENDATIONS: Clinical follow-up and age-appropriate screening mammography. Results and recommendations discussed with the patient. BI-RADS Category 2: Benign A lay language report of this examination will be provided to the patient. Dictated by Andrade Rosado MD @ 09/01/2023 11:40:44 AM /Dictated by: Andrade Rosado MD @ 09/01/2023 11:40:00 AM (Electronically Signed)
--- NOTE | 2023-09-01 11:15 | CRLHL7_ITS ---
For Patients: As a result of the Cures Act, medical imaging exams and procedure reports are released immediately into your electronic medical record. You may view this report before your referring provider. If you have questions, please contact your health care provider. PLEASE SEE DIGITAL DIAGNOSTIC BILATERAL MAMMOGRAM PERFORMED SAME DAY CRL:[email or web address] [email or web address]/Dictated by: Andrade Rosado MD @ 09/01/2023 11:40:00 AM (Electronically Signed)
== END 2023-09-01 10:34 | disposition home or self-care (01) ==
LOC: MAMMO 10:34
PROVIDERS: PCP Obstetrics & Gynecology; Visit Provider Obstetrics & Gynecology
DX: N63.10 Unspecified lump in the right breast, unspecified quadrant (principal); N60.81 Other benign mammary dysplasias of right breast
CPT/HCPCS: 76642; 77066; G0279

== ENCOUNTER 2024-12-04 14:57 | Outpatient (CLI) | payer OTHER, SELFPAY | END 2024-12-04 14:58 | disposition home or self-care (01) | PROVIDERS: PCP Physician Assistant Medical; Visit Provider Physician Assistant Medical | DX: F41.1 Generalized anxiety disorder (principal); Z13.228 Encounter for screening for other metabolic disorders; Z13.6 Encounter for screening for cardiovascular disorders | CPT/HCPCS: 80053; 80061; 84443 ==

== ENCOUNTER 2025-03-12 13:16 | Emergency (ER) | payer OTHER, SELFPAY ==
[2025-03-12] VITALS (14 sets, daily range): BP systolic 128–133; BP diastolic 80–87; PULSE 57–74; RESP 11–20; TEMP 36.2; O2SAT 94–100
--- OUTSIDE RECORDS SUMMARY | 2025-03-12 13:19 | XMS_ITS | Clinical Summary ---
Author Organization [facility] Address [address] [place] [address] Care Team Providers Care Briquette Machine Operator Helper Name Role Phone Brandon Escalera MD Primary Care Provider Oksana vailable Social History Tobacco Use Types Packs/Day Years Used Date Smoking Tobacco: Never Assessed Comments Unknown Sex and Gender Information Value Date Recorded Sex Assigned at Not on file Legal Sex Female 6:44 AM [employer]CR[employer] Gender Identity Not on file Sexual Orientation Not on file Plan of Treatment Health Maintenance Due Date Last Done Comments Tetanus booster 1998 Depression screening for age 12+ 1999 HIV for age 15-65 2002 BMI (ht and wt on same day) for age 18+ 2005 Hepatitis C screening for ag e 18-79 2005 Hepatitis B series for 19+ ( 1 of 3 - 19+ 3-dose series) 2006 Pap test for age 21-65 03/08/2021 8, 03/08/2018, 04/23/2014 COVID-19 vaccine series (2023- season) 2024 Influenza Vaccine (#1) 2025 Pneumococcal series for age 6-49 Aged Out No longer eligible b ased on patient's age to complete this topic Procedures Procedure Name Priority Date/Time Associated Diagnosis Comments FLOOR HAND THIN PREP PAP SCREEN IMAGED Routine 03/08/2018 2:52 PM CDT from Last 3 Months or Most Recently Relevant to Health Maintenance Results * FLOOR HAND THIN PREP PAP SCREEN IMAGED (03/08/2018 2:52 PM CDT) Case Report Gynecologic Cytology Report Case: [id number] Authorizing Provider: Jennifer Snow Collected: 03/08/2018 1452 MD Devi First Screen: Vijaya Rashid Received: 03/10/2018 1452 Specimen: FLOOR HAND ThinPrep Vial Screening, Cervical/Vaginal 03/21/2018 12:15 PM CDT [facility] INTERPRETATION/ RESULT NEGATIVE FOR INTRAEPITHELIAL LESION OR MALIGNANCY (NIL) (none) 03/21/2018 12:15 PM CDT [facility] at 1215 CDT SPECIMEN ADEQUACY Satisfactory for evaluation No endocervical component seen in a patient 03/21/2018 12:15 PM CDT [facility] HPV REQUEST HPV and PAP 03/21/2018 12:15 PM CDT [facility] Date of LMP 12/28/2017 03/21/2018 12:15 PM CDT [facility] Last Pap Date 04/23/2014 03/21/2018 12:15 PM CDT [facility] Last Pap Result NIL 8 12:15 PM CDT [facility] Menstrual Status 03/21/2018 12:15 PM CDT [facility] Automated Review Successful 03/21/2018 12:15 PM CDT [facility] Comment:Specimen processed s uccessfully by automated healthcare recruiter device, ThinPrep Imaging System, [employer] ANCILLARY TESTING FLOOR HAND HPV Ordered, Please see separate report 03/21/2018 12:15 PM CDT [facility] Note The pap test is a screening technique, not a diagnostic procedure. It is used primarily to screen for squamous cancers and precursor lesions. Published studies have shown that it is subject to both false negative and false positive results. The pap test should not be used as the sole means to diagnose or exclude pre-malignant and malignant lesions. Cytology is screened and interpreted at [facility], [facility] Laboratory - [address], [place] [address] and [facility] - [address]; [place] [address] and [facility] - [address]; [place] [address] and [facility] [address]; [place] [address] 03/21/2018 12:15 PM CDT [facility]- EN[facility]AL [facility] Other (Cervical/Vagina l) 03/08/2018 2:52 PM CDT 03/10/2018 2:52 PM CDT us Jennifer Snow MD PATHOLOGY/CYTOLOGY Final Result [facility] [address] [place] [address], [place] from Last 3 Months or Most Recently Relevant to Health Maintenance Care Teams Briquette Machine Operator Helper Relationship Specialty Start Date End Date Brandon Escalera MD PCP - General Family Practice 12/26/17
--- NOTE | 2025-03-12 14:13 | ED.GENADULT ---
HPI - General Adult General Chief complaint: Chest Pain Stated complaint: chest pain Time Seen by Provider: 03/12/25 13:59 History of Present Illness HPI narrative: Chest pain 1 hour ago, right in the middle, breathing deeper because of chest discomfort Took 3 tums about 1130- no relief 40-year-old woman presenting to the emergency department with concern of chest pain. Sharp. Thought it was like really bad heartburn and took some Tums. Ultimately unfamiliar because does not really get heartburn. Pain had occurred around 1130, about an hour and a half after eating a breakfast sandwich. She has been pacing as well in discomfort. Created some intense nausea but did not vomit. By the time I am seeing Jennifer in the emergency department it has just settled down. Duration in total maybe 2 hours. She did feel some pain between her shoulder blades as well. Was seen before in this emergency department a couple of years ago with atypical chest pain but this was following a hysterectomy it sounds as though this was ultimately thought to be musculoskeletal pain. Does not usually have food intolerances. Today pain was somewhat reproducible to palpation over the lower sternum. Related Data Previous Rx's ?Medication ?Instructions ?Recorded citalopram 40 mg tablet 40 mg PO DAILY #90 tabs 12/04/24 estradiol 1 mg tablet 1 mg PO DAILY #90 tabs 03/06/25 Allergies Allergy/AdvReac Type Severity Reaction Status Date / Time No Known Drug Allergies Allergy Verified 03/12/25 13:30 Review of Systems Status of ROS: Reports: 6 or more systems reviewed and unremarkable except as noted in History and below [facility] Medical History Breast mass, right ?N63.10 - Unspecified lump in the right breast, unspecified quadrant (ICD-10) Chest pain ?R07.9 - Chest pain, unspecified (ICD-10) Malignant neoplasm of right ovary (~2010) ?C56.1 - Malignant neoplasm of right ovary (ICD-10) Right-sided low back pain without sciatica ?M54.50 - Low back pain, unspecified (ICD-10) History of vaginal delivery 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 - Recurrent loss (ICD-10) Endometriosis determined by laparoscopy (2010) ?N80.9 - Endometriosis, unspecified (ICD-10) Surgical History Status post laparoscopic hysterectomy (08/24/22) ?Z90.710 - Acquired absence of both cervix and uterus (ICD-10) History of D&C (04/13/17) ?Z98.890 - Other specified postprocedural states (ICD-10) Status post robot-assisted surgical procedure (2010) ?Z98.890 - Other specified postprocedural states (ICD-10) History of dilation and curettage (07/27/14) ?Z98.890 - Other specified postprocedural states (ICD-10) Family History Father Skin cancer Mother Skin cancer Father Lymphoma Social History Narrative: Relationship status: Spouse: Andrea Education: School graduate 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 Prior to : 0-1 of servings per week. Illicit or Recreational drug use: No. Concerns for safety at home/work: No. Would like to discuss issues of abuse: No. Dietary restrictions: No Exercise: No Smoking Status: Never smoker Do you use any of these nicotine containing products: None Second hand tobacco smoke exposure: No How often do you have a drink containing alcohol: 4 or more times a week Alcohol type: wine How many standard drinks containing alcohol do you have on a typical day: 1 or 2 How often do you have six or more drinks on one occasion: Never AUDIT-C Alcohol total score: 4 Non-prescribed substance use: denies use Caffeine: Yes service: No Exam Narrative: Exam Narrative: Very pleasant. NAD. Skin is warm and dry actually quite tanned. No rashes apparent. Heart in regular rate and rhythm. Lungs are clear. Abdomen is overweight. Some pain to palpation in the mid lower sternum but not exactly the epigastrium and no right upper quadrant pain. Little sore to palpation in the mid upper back. Extremities are well perfused without edema. Const: Vital Signs, click to edit/add: Vital Signs - 24 hr 03/12/25 13:26 03/12/25 13:39 03/12/25 13:45 Temperature 97.1 F L Pulse Rate 65 70 Pulse Rate [Pulse Oximeter] 71 Respiratory Rate 20 17 13 Blood Pressure Blood Pressure [Ri ght Upper Arm] 133/87 Pulse Oximetry 100 99 97 Oxygen Delivery Me thod Room Air 03/12/25 14:00 03/12/25 14:15 03/12/25 14:30 Temperature Pulse Rate 74 60 64 Pulse Rate [Pulse Oximeter] Respiratory Rate 18 19 12 Blood Pressure Blood Pressure [Ri ght Upper Arm] Pulse Oximetry 99 96 94 Oxygen Delivery Me thod 03/12/25 14:45 03/12/25 15:00 03/12/25 15:15 Temperature Pulse Rate 64 61 62 Pulse Rate [Pulse Oximeter] Respiratory Rate 11 L 15 Blood Pressure Blood Pressure [Ri ght Upper Arm] Pulse Oximetry 97 96 95 Oxygen Delivery Me thod 03/12/25 15:30 03/12/25 15:45 03/12/25 16:00 Temperature Pulse Rate 65 60 57 L Pulse Rate [Pulse Oximeter] Respiratory Rate 13 16 Blood Pressure Blood Pressure [Ri ght Upper Arm] Pulse Oximetry 95 96 95 Oxygen Delivery Me thod 03/12/25 16:15 03/12/25 17:23 Temperature Pulse Rate 64 Pulse Rate [Pulse Oximeter] Respiratory Rate Blood Pressure 128/80 Blood Pressure [Ri ght Upper Arm] Pulse Oximetry 98 Oxygen Delivery Me thod Documenting provider has reviewed patient's vital signs: yes Course Vital Signs Vital signs: Initial Vital Signs Temperature 97.1 F L 03/12/25 13:26 Temperature Source Temporal Artery Scan 03/12/25 13:26 Pulse Rate 71 03/12/25 13:26 Respiratory Rate 03/12/25 13:26 Blood Pressure 133/87 03/12/25 13:26 Blood Pressure Mean 102 03/12/25 13:26 Blood Pressure Position Sitting 03/12/25 13:26 Pulse Oximetry 100 03/12/25 13:26 Oxygen Delivery Method Room Air 03/12/25 13:26 Vital Signs Temperature 97.1 F L 03/12/25 13:26 Pulse Rate 71 03/12/25 13:26 Respiratory Rate 20 03/12/25 13:26 Blood Pressure 133/87 03/12/25 13:26 Pulse Oximetry 100 03/12/25 13:26 Oxygen Delivery Method Room Air 03/12/25 13:26 Temperature 97.1 F L 03/12/25 13:26 Pulse Rate 64 03/12/25 16:15 Respiratory Rate 16 03/12/25 16:00 Blood Pressure 128/80 03/12/25 17:23 Pulse Oximetry 98 03/12/25 16:15 Oxygen Delivery Method Room Air 03/12/25 13:26 Medical Decision Making MDM Narrative Medical decision making narrative: This is reproducible to palpation of the chest wall suggesting chest wall pain, costochondritis. Might be referred from elsewhere. Not convinced that this is the source of the degree of discomfort she was describing. Certainly could have been some GERD and esophageal spasm. Gastritis? Biliary disease? Ischemic cardiovascular though I think unlikely. 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 Standard labs. Transaminases are tripled and doubled for AST and ALT respectively compared to prior. Does not look to be an obstructive pattern. Did opt to do an ultrasound of limited abdomen. Discuss these findings with field representative/health education. Noted suspected gallstones and mildly dilated common bile duct possible gallbladder wall thickening as well. Radiology over-read noted a mass in the right lobe of the liver. With history of ovarian cancer I think it would be prudent to proceed with further imaging as suggested. I do think that is not unlikely that has experienced biliary colic. I did discuss this case briefly with the General surgery on-call for outpatient follow-up. INDICATION: Epigastric pain and elevated transaminases TECHNIQUE: Ultrasound abdomen limited. Sonographic images of the right upper quadrant were obtained using patel-scale and color Doppler images. COMPARISON: None available FINDINGS: Liver: Mildly increased echogenicity of the liver.. Demonstration of an ill-defined mass in the right liver lobe with internal vascularity measuring 4.7 x 3.8 x 3.9 centimeters. Gallbladder: Possible small radiopaque gallstones are appreciated. Borderline gallbladder wall thickening. No pericholecystic fluid. Common bile duct: 7.4 mm. Pancreas: Poorly visualized Right kidney: Normal in size. Normal echotexture and cortex. No masses, stones, or hydronephrosis. Vasculature: Proximal abdominal aorta and IVC are normal. The main portal vein is patent. IMPRESSION: 1. Demonstration of a 4.7 centimeter mass within the right liver lobe. If there is concern for potential metastatic disease recommend follow-up with contrast-enhanced CT. 2. Dilated common bile duct measuring 7.4 millimeters with borderline gallbladder wall thickening and possible stones. No obvious choledocholithiasis. Underlying obstruction may be difficult to exclude. Dictated by Anderson Tobias MD @ 03/12/2025 5:45:15 PM INDICATION: Liver mass seen on ultrasound.. TECHNIQUE: CT abdomen and pelvis acquired with 100 cc Omnipaque 350 IV contrast. Post-contrast images were obtained in the portal venous, 2 minute and 5 minute delayed phases. COMPARISON: Ultrasound of the abdomen from March 12, [address] of the abdomen from February 23, 2016. FINDINGS: Lower chest: Unremarkable. Liver: The lesion identified on the ultrasound is not visualized on the CT. Normal size and attenuation of the liver. No suspicious masses or lesions. Gallbladder and bile ducts: Mild pericholecystic fluid. No radiopaque gallstones identified. No significant gallbladder wall thickening. Pancreas: Unremarkable. No mass or inflammation. Spleen: Unremarkable. Normal in size. No masses. Adrenal glands: Unremarkable. No nodules. Kidneys: Unremarkable. No suspicious masses, stones, or hydronephrosis. GI tract: Status post appendectomy. No bowel obstruction. Vasculature: Abdominal aorta is normal in caliber. Mesenteric arteries are patent. Lymph nodes: No lymphadenopathy. Peritoneum/Abdominal Wall: Unremarkable. No sign of mass or infiltration. No free air or significant free fluid. Pelvis: Status post hysterectomy. Bladder is unremarkable. Bones: Unremarkable for age. IMPRESSION: 1. Liver mass identified on the same day ultrasound is not visualized on the CT. This may represent FNH or other benign lesion. Consider further evaluation with outpatient MRI if clinically indicated. 2. Mild pericholecystic fluid, nonspecific. 3. Status post appendectomy and hysterectomy. Please note that all CT scans at this facility use dose modulation, iterative reconstruction, and/or weight-based dosing when appropriate to reduce radiation dose to as low as reasonably achievable. Dictated by Brandon Ma MD @ 03/12/2025 7:16:[address] imaging is reassuring only that otherwise no evidence elsewhere of metastatic disease. I did discuss again with radiologist next best imaging. Understandably Jennifer is quite concerned, tearful. Appears to be benign but needs further characterization. See patient discharge plan for further discussion We will try tomorrow to make an appointment in general surgery clinic for your epigastric pain/gallbladder possibly with Dr. Lee with whom I briefly discussed your case today. We will contact you with that appointment. In the meantime try to avoid eating fatty or greasy foods. I am prescribing you some Percocet as a pain medication if you need. Also Zofran for nausea. Both of these from [facility]. If you have a flare of pain you can try this medication and if not improved in 1.5 - 2 hours would return to the emergency department. Return otherwise also for repeated vomiting, fever. Regarding further characterization of whatever is going on in the liver - I have placed an order for an MRI of your abdomen to look specifically at your liver. Expect a call from our Radiology/scheduling department tomorrow as well. I think things are going to be okay. Medical Records Medical records reviewed: Yes I reviewed the patient's medical records Lab Data Lab results reviewed: Yes I reviewed the patient's lab results Labs: Lab Results 03/12/25 03/12/25 Range/Units 14:23 14:54 WBC 10.61 (4.50-11.00) K/uL RBC 4.80 (4.00-5.20) m/uL Hgb 13.9 (12.0-16.0) gm/dL Hct 41.4 (33.0-51.0) % MCV 86 (80-100) fL MCH 29 (26-34) pg MCHC 34 (32-36) gm/dL RDW Coeff of Brain 12.1 (11.5-15.5) % Plt Count 246 (140-440) K/uL Neut % (Auto) 85.6 H (42.0-72.0) % Lymph % (Auto) 9.5 L (20-44) % Talbot % (Auto) 4.1 (0.0-11.0) % Eos % (Auto) 0.5 (0.0-7.0) % Baso % (Auto) 0.2 (0.0-3.0) % Neut # (Auto) 9.10 H (1.7-7.0) K/uL Lymph # (Auto) 1.00 (0.90-2.90) K/uL Talbot # (Auto) 0.40 (0.00-0.90) K/UL Eos # (Auto) 0.05 (0.00-0.50) K/uL Baso # (Auto) 0.02 (0.00-0.30) K/uL Abs Immat Gran (auto) 0.01 (0.00-0.30) K/uL Imm/Tot Granulo (auto) 0.1 % Sodium 139 (135-149) mmol/L Potassium 4.0 (3.6-5.1) mmol/L Chloride 103 (96-114) mmol/L Carbon Dioxide 29 (20-32) mmol/L Anion Gap 7 (7-15) mEq/L BUN 14 (5-24) mg/dL Creatinine 0.9 (0.5-1.5) mg/dL Estimated GFR 84 ml/min Glucose 128 H (60-115) mg/dL Calcium 9.8 (8.4-10.6) mg/dL Total Bilirubin 0.7 (0.1-1.5) mg/dL Direct Bilirubin 0.3 (0.0-0.5) mg/dL AST 82 H (12-35) U/L ALT 50 H (4-35) U/L Alkaline Phosphatase 88 (40-150) U/L Troponin I < 0.01 (0.01-0.04) ng/mL NT-Pro-B Natriuret Pep 63 (See Note) pg/mL Total Protein 6.9 (6.0-8.3) g/dL Albumin 4.3 (3.3-5.0) g/dL Lipase 63 (23-300) U/L POC Troponin I 0.00 L (0.01-0.04) ng/ml ECG Data Attestation: I personally reviewed and interpreted this ECG as follows: (Normal sinus rhythm. Rate of 65. Without ischemic changes.) Discharge Plan Discharge Clinical Impression: Acute epigastric pain, Liver mass Patient Disposition: Home w/ Parent or Adult Condition: Improved Additional Instructions: We will try tomorrow to make an appointment in general surgery clinic for your epigastric pain/gallbladder possibly with Dr. Lee with whom I briefly discussed your case today. We will contact you with that appointment. In the meantime try to avoid eating fatty or greasy foods. I am prescribing you some Percocet as a pain medication if you need. Also Zofran for nausea. Both of these from [facility]. If you have a flare of pain you can try this medication and if not improved in 1.5 - 2 hours would return to the emergency department. Return otherwise also for repeated vomiting, fever. Regarding further characterization of whatever is going on in the liver - I have placed an order for an MRI of your abdomen to look specifically at your liver. Expect a call from our Radiology/scheduling department tomorrow as well. I think things are going to be okay. Prescriptions: No Action estradiol 1 mg tablet 1 mg PO DAILY Qty: 90 4RF citalopram 40 mg tablet 40 mg PO DAILY Qty: 90 3RF Follow Up/Referrals: Lux Muñoz PA-C [Primary Care Provider, Family Practice] Stand Alone Forms: [employer] Info Instructions
[2025-03-12 15:00] LABS: Hematocrit 41.4 % (33.0-51.0); Hemoglobin* 13.9 gm/dL (12.0-16.0); Immature Granulocytes Abs Auto 0.01 K/uL (0.00-0.30); Immature Granulocytes Pct Auto 0.1 %; Mean Corpuscular HGB Conc 34 gm/dL (32-36); Mean Corpuscular Hemoglobin 29 pg (26-34); Mean Corpuscular Volume 86 fL (80-100); RDW Coefficient of Variation % 12.1 % (11.5-15.5); Red Blood Count 4.80 m/uL (4.00-5.20); White Blood Count* 10.61 K/uL (4.50-11.00)
[2025-03-12 15:09] LABS: Troponin, Point-of-Care* 0.00 ng/ml (0.01-0.04)
[2025-03-12 15:22] LABS: Lymphocytes Absolute Auto 1.00 K/uL (0.90-2.90); Slide Review Reflex No
[2025-03-12 15:46] LABS: Albumin* 4.3 g/dL (3.3-5.0); Chloride* 103 mmol/L (96-114); Potassium* 4.0 mmol/L (3.6-5.1); Sodium* 139 mmol/L (135-149)
[2025-03-12 15:49] LABS: Alanine Aminotransferase* 50 U/L (4-35); Alkaline Phosphatase* 88 U/L (40-150); Anion Gap 7 mEq/L (7-15); Aspartate Amino Transferase* 82 U/L (12-35); Bilirubin Direct* 0.3 mg/dL (0.0-0.5); Bilirubin Total* 0.7 mg/dL (0.1-1.5); Blood Urea Nitrogen* 14 mg/dL (5-24); Calcium* 9.8 mg/dL (8.4-10.6); Carbon Dioxide* 29 mmol/L (20-32); Creatinine* 0.9 mg/dL (0.5-1.5); Estimated Glomerular Filt Rate 84 ml/min; Glucose* 128 mg/dL (60-115); Total Protein* 6.9 g/dL (6.0-8.3)
[2025-03-12 16:02] LABS: NT Pro B Type NatriureticPept* 63 pg/mL (See Note)
--- NOTE | 2025-03-12 16:02 | CRLHL7_ITS ---
For Patients: As a result of the Century Cures Act, medical imaging exams and procedure reports are released immediately into your electronic medical record. You may view this report before your referring provider. If you have questions, please contact your health care provider. INDICATION: Epigastric pain and elevated transaminases TECHNIQUE: Ultrasound abdomen limited. Sonographic images of the right upper quadrant were obtained using patel-scale and color Doppler images. COMPARISON: None available FINDINGS: Liver: Mildly increased echogenicity of the liver.. Demonstration of an ill-defined mass in the right liver lobe with internal vascularity measuring 4.7 x 3.8 x 3.9 centimeters. Gallbladder: Possible small radiopaque gallstones are appreciated. Borderline gallbladder wall thickening. No pericholecystic fluid. Common bile duct: 7.4 mm. Pancreas: Poorly visualized Right kidney: Normal in size. Normal echotexture and cortex. No masses, stones, or hydronephrosis. Vasculature: Proximal abdominal aorta and IVC are normal. The main portal vein is patent. IMPRESSION: 1. Demonstration of a 4.7 centimeter mass within the right liver lobe. If there is concern for potential metastatic disease recommend follow-up with contrast-enhanced CT. 2. Dilated common bile duct measuring 7.4 millimeters with borderline gallbladder wall thickening and possible stones. No obvious choledocholithiasis. Underlying obstruction may be difficult to exclude. Dictated by Anderson Tobias MD @ 03/12/2025 5:45:15 PM (Electronically Signed)
--- NOTE | 2025-03-12 18:06 | CRLHL7_ITS ---
For Patients: As a result of the Century Cures Act, medical imaging exams and procedure reports are released immediately into your electronic medical record. You may view this report before your referring provider. If you have questions, please contact your health care provider. INDICATION: Liver mass seen on ultrasound.. TECHNIQUE: CT abdomen and pelvis acquired with 100 cc Omnipaque 350 IV contrast. Post-contrast images were obtained in the portal venous, 2 minute and 5 minute delayed phases. COMPARISON: Ultrasound of the abdomen from March 12, [address] of the abdomen from February 23, 2016. FINDINGS: Lower chest: Unremarkable. Liver: The lesion identified on the ultrasound is not visualized on the CT. Normal size and attenuation of the liver. No suspicious masses or lesions. Gallbladder and bile ducts: Mild pericholecystic fluid. No radiopaque gallstones identified. No significant gallbladder wall thickening. Pancreas: Unremarkable. No mass or inflammation. Spleen: Unremarkable. Normal in size. No masses. Adrenal glands: Unremarkable. No nodules. Kidneys: Unremarkable. No suspicious masses, stones, or hydronephrosis. GI tract: Status post appendectomy. No bowel obstruction. Vasculature: Abdominal aorta is normal in caliber. Mesenteric arteries are patent. Lymph nodes: No lymphadenopathy. Peritoneum/Abdominal Wall: Unremarkable. No sign of mass or infiltration. No free air or significant free fluid. Pelvis: Status post hysterectomy. Bladder is unremarkable. Bones: Unremarkable for age. IMPRESSION: 1. Liver mass identified on the same day ultrasound is not visualized on the CT. This may represent FNH or other benign lesion. Consider further evaluation with outpatient MRI if clinically indicated. 2. Mild pericholecystic fluid, nonspecific. 3. Status post appendectomy and hysterectomy. Please note that all CT scans at this facility use dose modulation, iterative reconstruction, and/or weight-based dosing when appropriate to reduce radiation dose to as low as reasonably achievable. Dictated by Brandon Ma MD @ 03/12/2025 7:16:59 PM (Electronically Signed)
== END 2025-03-12 20:17 | disposition home or self-care (01) ==
PROVIDERS: Emergency Provider Family Medicine; PCP Physician Assistant Medical
DX: R10.13 Epigastric pain (principal); R16.0 Hepatomegaly, not elsewhere classified; R11.0 Nausea; R74.01 Elevation of levels of liver transaminase levels
CPT/HCPCS: 36415; 74177; 76705; 80048; 80076; 83690; 83880; 84484; 85025; 93005; 99284; 99285; Q9967

== ENCOUNTER 2025-03-15 10:13 | Outpatient (CLI) | payer OTHER, SELFPAY ==
--- NOTE | 2025-03-15 10:30 | CRLHL7_ITS ---
For Patients: As a result of the Century Cures Act, medical imaging exams and procedure reports are released immediately into your electronic medical record. You may view this report before your referring provider. If you have questions, please contact your health care provider. INDICATION: Liver mass. COMPARISON: CT scans of the abdomen and pelvis dated 12 March 2025 and 23 February 2016. Abdominal ultrasound dated 12 March 2025. TECHNIQUE: Abdominal MRI with T1 in- and out of phase, T2, diffusion weighted, and progressively delayed post-contrast images. Intravenous gadolinium administered. FINDINGS: Minimal geographic fatty infiltration of the liver. 4.3 x 3.6 cm lesion in segment 4 of the liver shows minimal restricted diffusion and increased T2 weighted sequences and no abnormal enhancement. No focal abnormalities identified in the visualized portions of the spleen, pancreas, adrenal glands, and kidneys. No hydronephrosis. No adenopathy. Impression : 1. Subtle 4.3 cm lesion in segment 4 of the liver has nonspecific but likely benign imaging characteristics. Recommend follow-up ultrasound in 6 months to begin documentation of stability. Dictated by Elie Smith MD @ 03/18/2025 10:54:19 AM (Electronically Signed)
== END 2025-03-15 10:14 | disposition home or self-care (01) ==
LOC: MRI 10:14
PROVIDERS: PCP Physician Assistant Medical; Visit Provider Family Medicine
DX: R16.0 Hepatomegaly, not elsewhere classified (principal)
CPT/HCPCS: 74183; A9575